=== PATIENT | female | born 1990 | race African-American/Black ===

== ENCOUNTER 2020-10-05 19:18 | Emergency (ER) | payer MEDICAID, OTHER ==
[~2020-10-05] VITALS: Ht 170.2 cm; Wt 110.5 kg
[2020-10-05 19:31] VITALS: BP 118/62
== END 2020-10-05 20:13 | disposition left against medical advice (07) ==
LOC: EMS 19:20
DX: R10.2 Pelvic and perineal pain (principal); Z53.21 Procedure and treatment not carried out due to patient leaving prior to being seen by health care provider